=== PATIENT | female | born 1995 | race Caucasian/White ===

== ENCOUNTER → 2016-05-17 | Outpatient (CLI) | payer OTHER | LOC: M RAD 12:28 | PROVIDERS: ATTEND Physician Assistant | DX: Z53.8 Procedure and treatment not carried out for other reasons (principal) ==

== ENCOUNTER → 2016-05-25 | Outpatient (CLI) | payer OTHER ==
[~2016-05-25] VITALS: Ht 162.6 cm; Wt 55.3 kg
[~2016-05-25] MED LIST: LIDOCAINE 1% MDV 20ML VIAL As Ordered ONE; MEPIVACAINE HCL 1.5% 30 ML VIAL (J0670) XX ONE
--- NOTE | 2016-05-25 13:06 | REP ---
ULTRASOUND RIGHT BREAST: Real-time sonographic evaluation of the right breast performed prior to a scheduled ultrasound guided biopsy of a mass at 10 o'clock. Lobulated mass is noted at that location measuring 3.1 x 1.6 x 2.5 cm. There is a separate mass at 11 o'clock measuring 1.0 x 0.7 x 1.1 cm. We will proceed with ultrasound guided biopsy of the dominant mass. Signed by Juma Bueno MD 05/26/2016 04:36 P
--- NOTE | 2016-05-25 13:14 | REP ---
POSTBIOPSY MAMMOGRAM RIGHT BREAST: Postbiopsy mammogram right breast performed following an ultrasound guided biopsy of right breast mass. Metallic clip is seen in the retroareolar region of the right breast with surrounding dense fibroglandular tissue. Signed by Juma Bueno MD 05/26/2016 04:36 P
--- NOTE | 2016-05-25 17:46 | REP ---
ULTRASOUND GUIDED RIGHT BREAST BIOPSY: The procedure was performed under the direct supervision of Dr. Bueno. The patient has a history of a lobulated mass in the 10 o'clock position of the right breast measuring 3.1 x 1.6 x 2.5 cm. Seen on a previous ultrasound performed earlier today. The risks and benefits of the procedure were explained to the patient and informed consent was obtained. The right breast mass was localized using ultrasound guidance. The skin was prepped and draped in a sterile fashion. 1% Xylocaine was used as a local anesthetic. Using ultrasound guidance a 13-gauge suction assisted mammotome needle was inserted and 5 core biopsy samples were obtained. A marker clip was placed at the biopsy site. The patient tolerated the procedure well and there were no immediate complications. After the appropriate amount of monitored convalescence the patient was discharged from the department. Reviewed by JOSE Fontenot 05/26/2016 08:21 AEdited and Signed by Juma Bueno MD 05/26/2016 04:56 P
== END ==
LOC: M RADPRO 09:17
PROVIDERS: ATTEND Physician Assistant
DX: N63 Unspecified lump in breast (principal); N60.21 Fibroadenosis of right breast
CPT/HCPCS: 19083; 76642; 88305; G0206

== ENCOUNTER 2017-06-01 09:10 | Emergency (ER) | payer OTHER ==
[2017-06-01] MEDS: traMADol 50 MG TAB PO ×2 (10:09)
[2017-06-01] MEDS: ACETAMINOPHEN TAB 650MG DOSE (2X325MG) PO ×2 (10:09)
== END 2017-06-01 10:59 | disposition home or self-care (01) ==
LOC: M ED 09:10
DX: S60.011A Contusion of right thumb without damage to nail, initial encounter (principal); W23.0XXA Caught, crushed, jammed, or pinched between moving objects, initial encounter; Y92.018 Other place in single-family (private) house as the place of occurrence of the external cause; F17.210 Nicotine dependence, cigarettes, uncomplicated
CPT/HCPCS: 73140

== ENCOUNTER 2017-09-08 23:41 | Emergency (ER) | payer OTHER ==
[2017-09-09] MEDS ORDERED: METAL LOCK LOOP XX (01:16)
== END 2017-09-09 03:08 | disposition left against medical advice (07) ==
LOC: M ED 23:41
DX: Z53.29 Procedure and treatment not carried out because of patient's decision for other reasons (principal)